=== PATIENT | female | born 1995 | race Caucasian/White ===

== ENCOUNTER 2016-09-14 19:13 | Emergency (ER) | payer OTHER ==
[~2016-09-14] VITALS: Ht 165.1 cm; Wt 121.9 kg
[~2016-09-14 19:13] MED LIST: ARIP15TA PO; LITH150C6 PO; LITH600C PO; NALTPOW PO; SERT-234 PO
[2016-09-14 19:19] VITALS: TEMP 36.9; Ht 165.1 cm; Wt 121.9 kg
[2016-09-14] MEDS ORDERED: TRAZ100T29 PO (19:52)
[2016-09-14] MEDS ORDERED: KETOROLAC TROMETHAMINE 30 MG/ML VIAL IV STA (19:52)
[2016-09-14] MEDS ORDERED: VNTHFA/IN INH (19:52)
--- NOTE | 2016-09-14 20:01 | EMERGENCY ROOM VISIT NOTE ---
History Report prepared by Jesse: Robina Meza Under the Supervision of: Dr. Maria G Cook D.O. First contact with patient: 19:36 Chief Complaint: ABDOMINAL PAIN Stated Complaint: LLQ AND RUQ PAIN Nursing Triage Summary: Pt reports LLQ abdominal pain for approx 3 months, got worse overnight. Now also on R side radiating to back. Pt reports hx of kidney stones and ovarian cysts. History of Present Illness The patient is a 20 year old female who presents to the Emergency Room with complaints of persistent left lower quadrant abdominal pain for the past three months that worsened over the past two days. She currently rates her discomfort as an 8/10 in severity. The patient states that for the past three months she has had left lower quadrant abdominal pain. She states that she was evaluated in [place]'s emergency department. The patient states that she never received the results of her testings there, but notes that she was told that she had ovarian cysts. She states that over the last few days she has noticed increased pain in the left lower quadrant, and additionally notes right upper quadrant pain that radiates into her back. The patient states that her right upper quadrant abdominal pain is worsened with eating greasy foods. She additionally associates nausea with her symptoms today. The patient notes a family history of gallbladder disease on her maternal side. She denies any cough, fever, chills, sore throat, vomiting, urinary symptoms, diarrhea, constipation, or leg cramping or swelling. The patient states that she has taken Motrin and Tylenol for her discomfort without relief. Source of History: patient Onset: three months Position: abdomen (LLQ, RUQ) Symptom Intensity: 8/10 Timing: other (persistent) Associated Symptoms: + nausea, No chills, No cough, No diarrhea, No fevers, No sorethroat, No urinary symptoms, No vomiting Review of Systems See HPI for pertinent positives & negatives. A total of 10 systems reviewed and were otherwise negative. Past Medical & Surgical Medical Problems: (1) Asthma (2) Kidney stone (3) Ovarian cyst Family History Cancer Diabetes mellitus Gallbladder disease Heart disease Hypertension Kidney disease Kidney stones Lung disease Seizures Social History Smoking Status: Current Every Day Smoker Alcohol Use: none Marital Status: single Occupation Status: unemployed Current/Historical Medications Scheduled Albuterol Hfa (Ventolin Hfa), 2-4 PUFFS INH Q6H Sertraline (Zoloft), 100 MG PO DAILY Trazodone Hcl (Trazodone), 100 MG PO DAILY Allergies Coded Allergies: Penicillins (Unverified Allergy, Unknown, HIVES, 09/14/16) Physical Exam Vital Signs Date Time Temp Pulse Resp B/P Pulse Ox O2 Delivery O2 Flow Rate FiO2 09/14/16 21:08 67 16 113/68 98 09/14/16 20:41 71 18 115/67 97 Room Air 09/14/16 19:19 36.9 74 18 121/79 98 Room Air Physical Exam HEENT: Head - normocephalic and atraumatic Pupils are equal, round, and reactive to light. Extraocular eye muscles are intact, and sclera are anicteric. Nose - moist nasal mucosa without discharge. Mouth - moist buccal mucosa. Oropharynx is nonerythematous and there is no tonsillar exudate or edema noted. Neck: Supple; no JVD, nuchal rigidity, cervical lymphadenopathy. Heart: Regular rate and rhythm. There is a normal S1 and S2 with no murmurs, clicks, or gallops appreciated. Lungs: Clear to auscultation bilaterally with no wheezes, rales, or rhonchi. Abdomen: Right upper quadrant tenderness with palpation. Soft, nondistended, with good bowel sounds. There are no palpable pulsatile masses or hepatosplenomegaly. There is no guarding, rigidity, or rebound noted. Back: Right flank pain with palpation. Extremities: No evidence of cyanosis, clubbing, or edema. There are easily palpable peripheral pulses. Skin: warm and dry with good turgor and no rashes. Medical Decision & Procedures ER Provider Diagnostic Interpretation: US results as stated below per my review and radiologist interpretation: Right upper quadrant ultrasound GALLBLADDER-ABD LIMITED CLINICAL HISTORY: eval for cho tavo pain. Nausea. TECHNIQUE: Ultrasound COMPARISON STUDY: None FINDINGS: Gallbladder is somewhat contracted. No shadowing gallstones. Common bile duct 3 mm. Fatty infiltration of liver. Right kidney negative for hydronephrosis. IMPRESSION: No acute process. Mildly contracted gallbladder Electronically signed by: Emmanuel Chopra M.D. 09/14/2016 8:42 PM Dictated Date/Time: 09/14/2016 8:41 PM Laboratory Results 09/14/16 19:30 Red Blood Count 4.51, Mean Corpuscular Volume 88.5, Mean Corpuscular Hemoglobin 29.3, Mean Corpuscular Hemoglobin Concent 33.1, Mean Platelet Volume 10.7, Neutrophils (%) (Auto) 56.5, Lymphocytes (%) (Auto) 30.0, Monocytes (%) (Auto) 6.5, Eosinophils (%) (Auto) 6.5, Basophils (%) (Auto) 0.3, Neutrophils # (Auto) 5.25, Lymphocytes # (Auto) 2.78, Monocytes # (Auto) 0.60, Eosinophils # (Auto) 0.60, Basophils # (Auto) 0.03 09/14/16 19:30 Test 09/14/16 19:25 09/14/16 19:30 Urine Color YELLOW Urine Appearance CLOUDY (CLEAR) Urine pH 7.5 (4.5-7.5) Urine Specific [place] 1.014 (1.000-1.030) Urine Protein NEG (NEG) Urine Glucose (UA) NEG (NEG) Urine Ketones NEG (NEG) Urine Occult Blood NEG (NEG) Urine Nitrite NEG (NEG) Urine Bilirubin NEG (NEG) Urine Urobilinogen NEG (NEG) Urine Leukocyte Esterase TRACE (NEG) Urine WBC (Auto) 10-30 /hpf (0-5) Urine RBC (Auto) 5-10 /hpf (0-4) Urine Hyaline Casts (Auto) 0 /lpf (0-5) Urine Epithelial Cells (Auto) >30 /lpf (0-5) Urine Bacteria (Auto) 1+ (NEG) Urine Renal Epithelial Cells 10-20 /lpf (0-5) Urine Test NEG (NEG) White Blood Count 9.28 K/uL (4.8-10.8) Red Blood Count 4.51 M/uL (4.2-5.4) Hemoglobin 13.2 g/dL (12.0-16.0) Hematocrit 39.9 % (37-47) Mean Corpuscular Volume 88.5 fL (80-100) Mean Corpuscular Hemoglobin 29.3 pg (25-34) Mean Corpuscular Hemoglobin Concent 33.1 g/dl (32-36) Platelet Count 279 K/uL (130-400) Mean Platelet Volume 10.7 fL (7.4-10.4) Neutrophils (%) (Auto) 56.5 % Lymphocytes (%) (Auto) 30.0 % Monocytes (%) (Auto) 6.5 % Eosinophils (%) (Auto) 6.5 % Basophils (%) (Auto) 0.3 % Neutrophils # (Auto) 5.25 K/uL (1.4-6.5) Lymphocytes # (Auto) 2.78 K/uL (1.2-3.4) Monocytes # (Auto) 0.60 K/uL (0.11-0.59) Eosinophils # (Auto) 0.60 K/uL (0-0.5) Basophils # (Auto) 0.03 K/uL (0-0.2) RDW Standard Deviation 45.3 fL (36.4-46.3) RDW Coefficient of Variation 13.9 % (11.5-14.5) Immature Granulocyte % (Auto) 0.2 % Immature Granulocyte # (Auto) 0.02 K/uL (0.00-0.02) Anion Gap 7.0 mmol/L (3-11) Est Creatinine Clear Calc Drug Dose 165.1 ml/min Estimated GFR () 142.5 Estimated GFR (Non- 123.0 BUN/Creatinine Ratio 13.5 (10-20) Calcium Level 9.1 mg/dl (8.5-10.1) Total Bilirubin 0.3 mg/dl (0.2-1) Direct Bilirubin < 0.1 mg/dl (0-0.2) Aspartate Amino Transf (AST/SGOT) 8 U/L (15-37) Alanine Aminotransferase (ALT/SGPT) 27 U/L (12-78) Alkaline Phosphatase 113 U/L (45-117) Total Protein 7.5 gm/dl (6.4-8.2) Albumin 4.0 gm/dl (3.4-5.0) Lipase 192 U/L (73-393) Laboratory results per my review. Medications Administered Medications (Trade) Dose Ordered Sig/Renan Route Start Time Stop Time Status Last Admin Dose Admin Ketorolac Tromethamine (Toradol Inj) 30 mg NOW STAT IV 09/14/16 19:52 09/14/16 19:54 DC 09/14/16 20:03 30 MG Procedure The patient was treated with Toradol Inj 30 mg IV. ED Course 1948: Past medical records reviewed. The patient was evaluated in room A12B. A complete history and physical exam was performed. An IV lock was initiated and labs are drawn as above. 1951: Ordered Toradol Inj 30 mg IV. 2029: I went to reevaluate the patient and she is at ultrasound. 2040: I reevaluated the patient and she said that her pain got a little bit better after the Toradol. After her Ultrasound the pain worsened, but she denies wanting any additional pain medications at this time. 2054: I reevaluated the patient and she is resting comfortably. I discussed all the exam findings with her and I discussed the treatment plan. She verbalized complete understanding and agreement. She is ready to go home. Medical Decision The patient is a 20 year old female who presents to the ED with abdominal pain. Differential diagnosis includes acute cholecystitis, gastritis, ulcerative disease, colitis, pyelonephritis, kidney stone. Lab interpretation: No leukocytosis, stable H&H, normal LFTs and lipase, normal renal function and glucose, is negative, urine looks contaminated, 1+ bacteria, 10-30 white cells, trace leukocyte esterase. This is a 20-year-old female patient presents with a 3 month history of left- sided abdominal pain and worsening right-sided abdominal pain over the past 3 days. Patient notes that the pain seems to get worse when she eats fattening foods. She has a strong family history of blood or disease. Liver function tests were normal. She went for a right upper quadrant ultrasound which was unremarkable. I've encouraged patient to follow-up with her PCP in [place]. The patient's urine appears to be contaminated. She denies any urinary symptoms. Impression Primary Impression: Right upper quadrant abdominal pain Scribe Attestation The scribe's documentation has been prepared under my direction and personally reviewed by me in its entirety. I confirm that the note above accurately reflects all work, treatment, procedures, and medical decision making performed by me. Departure Information Dispostion Home / Self-Care Referrals No Doctor, Assigned (PCP) Forms HOME CARE DOCUMENTATION FORM, IMPORTANT VISIT INFORMATION Patient Instructions My [facility] Additional Instructions Rest. Take a bland diet. Take low fat food. Ibuprofen - 600mg every 6 hours with food for pain Follow up with your PCP if pain persists
[2016-09-14 20:03] LABS: BASO % 0.3 %; BASO ABS # 0.03 K/uL (0-0.2); COMPLETE YES; EOS % 6.5 %; HEMATOCRIT 39.9 % (37-47); IG% 0.2 %; LYMPH ABS # 2.78 K/uL (1.2-3.4); MEAN CELL VOLUME 88.5 fL (80-100); MEAN CORPUSCULAR HEMOGLOBIN 29.3 pg (25-34); MEAN CORPUSCULAR HGB CONC 33.1 g/dl (32-36); MEAN PLATELET VOLUME 10.7 fL (7.4-10.4); MONO % 6.5 %; NEUT % 56.5 %; PLATELET COUNT 279 K/uL (130-400); RED BLOOD COUNT 4.51 M/uL (4.2-5.4); WHITE BLOOD COUNT 9.28 K/uL (4.8-10.8)
[2016-09-14 20:07] LABS: URINE APPEARANCE CLOUDY (CLEAR); URINE BILIRUBIN NEG (NEG); URINE COLOR YELLOW; URINE EPITHELIAL CELL AUTO >30 /lpf (0-5); URINE NITRITE NEG (NEG); URINE PH 7.5 (4.5-7.5); URINE SPECIFIC GRAVITY 1.014 (1.000-1.030); UROBILINOGEN NEG (NEG)
[2016-09-14 20:09] LABS: MANUAL MICROSCOPIC REQUIRED? NO; REVIEW REQ? YES
[2016-09-14 20:14] LABS: ALT/SGPT 27 U/L (12-78); AST/SGOT 8 U/L (15-37); BLOOD UREA NITROGEN 9 mg/dl (7-18); BUN/CREATININE RATIO 13.5 (10-20); CALCIUM 9.1 mg/dl (8.5-10.1); CARBON DIOXIDE 28 mmol/L (21-32); CHLORIDE 108 mmol/L (98-107); GLUCOSE 74 mg/dl (70-99); POTASSIUM 3.7 mmol/L (3.5-5.1); SODIUM 143 mmol/L (136-145)
[2016-09-14 20:16] LABS: ALKALINE PHOSPHATASE 113 U/L (45-117)
--- NOTE | 2016-09-14 20:43 | DIAGNOSTIC IMAGING REPORT ---
Right upper quadrant ultrasound GALLBLADDER-ABD LIMITED CLINICAL HISTORY: eval for cho tavo pain. Nausea. TECHNIQUE: Ultrasound COMPARISON STUDY: None FINDINGS: Gallbladder is somewhat contracted. No shadowing gallstones. Common bile duct 3 mm. Fatty infiltration of liver. Right kidney negative for hydronephrosis. IMPRESSION: No acute process. Mildly contracted gallbladder Electronically signed by: Emmanuel Chopra M.D. 09/14/2016 8:42 PM Dictated Date/Time: 09/14/2016 8:41 PM
[2016-09-14 21:08] VITALS: BP 113/68; PULSE 67; O2SAT 98
== END 2016-09-14 21:09 | disposition home or self-care (01) ==
LOC: C.EDB 19:16 → C.EDA 21:09
DX: R10.11 Right upper quadrant pain (principal); J45.909 Unspecified asthma, uncomplicated; N83.209 Unspecified ovarian cyst, unspecified side; F17.200 Nicotine dependence, unspecified, uncomplicated; Z87.442 Personal history of urinary calculi; Z79.899 Other long term (current) drug therapy; Z88.0 Allergy status to penicillin; Z80.9 Family history of malignant neoplasm, unspecified; Z83.3 Family history of diabetes mellitus; Z83.79 Family history of other diseases of the digestive system; Z82.49 Family history of ischemic heart disease and other diseases of the circulatory system; Z84.1 Family history of disorders of kidney and ureter; Z82.0 Family history of epilepsy and other diseases of the nervous system

== ENCOUNTER 2016-10-20 22:36 | Emergency (ER) | payer OTHER ==
[~2016-10-20] VITALS: Ht 165.1 cm; Wt 122.5 kg
[~2016-10-20 22:36] MED LIST changes: -ARIP15TA PO; -LITH150C6 PO; -LITH600C PO; -NALTPOW PO; +TRAZ100T29 PO; +VNTHFA/IN INH
[2016-10-20 22:55] VITALS: Ht 165.1 cm; Wt 122.5 kg
[2016-10-20] MEDS ORDERED: KETOROLAC TROMETHAMINE 30 MG/ML VIAL IV STA (23:44)
[2016-10-20] MEDS ORDERED: SODIUM CHLORIDE 0.9% 1000ML 1,000 ML IV STA ×2 (23:44)
[2016-10-20] MEDS ORDERED: DiphenhydrAMINE HCL 50 MG/ML VIAL IV STA (23:44)
[2016-10-20] MEDS ORDERED: METOCLOPRAMIDE HCL INJ 5 MG/ML 2 ML VIAL IV STA (23:44)
[2016-10-21 00:18] LABS: HEMATOCRIT 39.1 % (37-47); MEAN CELL VOLUME 87.3 fL (80-100); MEAN CORPUSCULAR HEMOGLOBIN 29.2 pg (25-34); MEAN CORPUSCULAR HGB CONC 33.5 g/dl (32-36); MEAN PLATELET VOLUME 10.3 fL (7.4-10.4); PLATELET COUNT 266 K/uL (130-400); RED BLOOD COUNT 4.48 M/uL (4.2-5.4); WHITE BLOOD COUNT 9.26 K/uL (4.8-10.8)
[2016-10-21 00:31] VITALS: BP 113/68; PULSE 98; TEMP 36.7; O2SAT 99
[2016-10-21 00:40] LABS: URINE APPEARANCE CLOUDY (CLEAR); URINE BILIRUBIN NEG (NEG); URINE COLOR YELLOW; URINE EPITHELIAL CELL AUTO >30 /lpf (0-5); URINE NITRITE NEG (NEG); URINE PH 6.5 (4.5-7.5); URINE SPECIFIC GRAVITY 1.029 (1.000-1.030); UROBILINOGEN NEG (NEG); ZZUR CULT IF INDIC CLEAN CATCH YES
[2016-10-21 00:45] LABS: BUN/CREATININE RATIO 20.1 (10-20); CALCIUM 8.8 mg/dl (8.5-10.1); CREATININE 0.76 mg/dl (0.60-1.20); POTASSIUM 3.7 mmol/L (3.5-5.1)
[2016-10-21 00:50] LABS: BASO % 0.2 %; BASO ABS # 0.02 K/uL (0-0.2); COMPLETE YES; EOS % 5.2 %; IG% 0.3 %; LYMPH % 36.3 %; LYMPH ABS # 3.36 K/uL (1.2-3.4); MONO % 5.6 %; NEUT % 52.4 %
[2016-10-21 00:51] LABS: MANUAL MICROSCOPIC REQUIRED? NO; REVIEW REQ? YES
[2016-10-21 01:08] LABS: URINE MUCUS PRESENT (NONE PRSENT)
--- NOTE | 2016-10-21 02:44 | EMERGENCY ROOM VISIT NOTE ---
History First contact with patient: 23:21 Chief Complaint: PELVIC PAIN Stated Complaint: SEVERE LOWER LEFT PELVIC PAIN History of Present Illness The patient is a 21 year old female who presents to the Emergency Room with complaints of left lower suprapubic pain for the past few days steadily getting worse described as cramping, ranging in severity currently 7 out of 10. Nothing makes it better or worse. Patient follows with OB in [place]. Patient states she comes here as she does not like the [facility]. . Patient had ovarian cysts before and symptoms feel somewhat similar. Patient is in a monogamous relationship and does not feel at risk for STI's. Patient denies chest pain, dyspnea, fever, chills, nausea, vomiting, diarrhea, back pain, vaginal itching or discharge, urinary symptoms. Review of Systems See HPI for pertinent positives & negatives. A total of 10 systems reviewed and were otherwise negative. Past Medical/Surgical History Medical Problems: (1) Asthma (2) Kidney stone (3) Ovarian cyst Family History Cancer Diabetes mellitus Gallbladder disease Heart disease Hypertension Kidney disease Kidney stones Lung disease Seizures Social History Smoking Status: Current Every Day Smoker Alcohol Use: none Marital Status: Housing Status: lives with family Occupation Status: unemployed Current/Historical Medications Scheduled Sertraline (Zoloft), 100 MG PO DAILY Trazodone Hcl (Trazodone), 100 MG PO DAILY Scheduled PRN Albuterol Hfa (Ventolin Hfa), 2 PUFFS INH Q6H PRN for SOB/Wheezing Allergies Coded Allergies: Penicillins (Unverified Allergy, Unknown, HIVES, 10/20/16) Physical Exam Vital Signs Date Time Temp Pulse Resp B/P Pulse Ox O2 Delivery O2 Flow Rate FiO2 10/21/16 00:31 36.7 98 18 113/68 99 10/21/16 00:30 98 18 113/68 99 Room Air 10/20/16 22:55 36.7 96 18 120/79 99 Room Air Pain Rating (0-10): 3.0 Physical Exam VITALS: Vitals are noted on the nurse's note and reviewed by myself. Vital signs stable. GENERAL: Pleasant female, in no acute distress, nondiaphoretic, well-developed well-nourished. SKIN: The skin was without rashes, erythema, edema, or bruising. There is no tenting of the skin. Capillary reflex less than 2 seconds. HEAD: Normocephalic atraumatic. EARS: External auditory canals clear, tympanic membranes pearly albert without erythema or effusion bilaterally. EYES: Pupils equal round and reactive to light and accommodation. Conjunctivae without injection, sclerae without icterus. Extraocular movements intact. NOSE: Patent, turbinates without inflammation or discharge. MOUTH: Mucous membranes moist. Pharynx without erythema or exudate. Uvula midline. Airway patent. Tongue does not deviate. NECK: Supple without nuchal rigidity. No lymphadenopathy. No thyromegaly. Cervical spine is nontender. No JVD. HEART: Regular rate and rhythm without murmurs gallops or rubs. LUNGS: Clear to auscultation bilaterally without wheezes, rales or rhonchi. No dullness to percussion. No retractions or accessory muscle use. ABDOMEN: Positive bowel sounds x 4. Normal tympanic percussion. Soft, tender to palpation left lower suprapubic region, protuberant, obese, no CVA tenderness , without masses or organomegaly. Latham sign negative. No guarding or rebound tenderness. MUSCULOSKELETAL: No muscle atrophy, erythema, or edema noted. NEURO: Patient was alert and oriented to person place and time. Normal sensation to light and sharp touch. No focal neurological deficits. Medical Decision & Procedures Laboratory Results 10/21/16 00:03 Red Blood Count 4.48, Mean Corpuscular Volume 87.3, Mean Corpuscular Hemoglobin 29.2, Mean Corpuscular Hemoglobin Concent 33.5, Mean Platelet Volume 10.3, Neutrophils (%) (Auto) 52.4, Lymphocytes (%) (Auto) 36.3, Monocytes (%) (Auto) 5.6, Eosinophils (%) (Auto) 5.2, Basophils (%) (Auto) 0.2, Neutrophils # (Auto) 4.85, Lymphocytes # (Auto) 3.36, Monocytes # (Auto) 0.52, Eosinophils # (Auto) 0.48, Basophils # (Auto) 0.02 10/21/16 00:03 Test 10/20/16 23:45 10/21/16 00:03 Urine Color YELLOW Urine Appearance CLOUDY (CLEAR) Urine pH 6.5 (4.5-7.5) Urine Specific [place] 1.029 (1.000-1.030) Urine Protein NEG (NEG) Urine Glucose (UA) NEG (NEG) Urine Ketones NEG (NEG) Urine Occult Blood NEG (NEG) Urine Nitrite NEG (NEG) Urine Bilirubin NEG (NEG) Urine Urobilinogen NEG (NEG) Urine Leukocyte Esterase TRACE (NEG) Urine WBC (Auto) 5-10 /hpf (0-5) Urine RBC (Auto) 5-10 /hpf (0-4) Urine Hyaline Casts (Auto) 1-5 /lpf (0-5) Urine Epithelial Cells (Auto) >30 /lpf (0-5) Urine Bacteria (Auto) 1+ (NEG) Urine Crystals (NONE PRSENT) Urine Mucus PRESENT (NONE PRSENT) Urine Test NEG (NEG) White Blood Count 9.26 K/uL (4.8-10.8) Red Blood Count 4.48 M/uL (4.2-5.4) Hemoglobin 13.1 g/dL (12.0-16.0) Hematocrit 39.1 % (37-47) Mean Corpuscular Volume 87.3 fL (80-100) Mean Corpuscular Hemoglobin 29.2 pg (25-34) Mean Corpuscular Hemoglobin Concent 33.5 g/dl (32-36) Platelet Count 266 K/uL (130-400) Mean Platelet Volume 10.3 fL (7.4-10.4) Neutrophils (%) (Auto) 52.4 % Lymphocytes (%) (Auto) 36.3 % Monocytes (%) (Auto) 5.6 % Eosinophils (%) (Auto) 5.2 % Basophils (%) (Auto) 0.2 % Neutrophils # (Auto) 4.85 K/uL (1.4-6.5) Lymphocytes # (Auto) 3.36 K/uL (1.2-3.4) Monocytes # (Auto) 0.52 K/uL (0.11-0.59) Eosinophils # (Auto) 0.48 K/uL (0-0.5) Basophils # (Auto) 0.02 K/uL (0-0.2) RDW Standard Deviation 43.4 fL (36.4-46.3) RDW Coefficient of Variation 13.5 % (11.5-14.5) Immature Granulocyte % (Auto) 0.3 % Immature Granulocyte # (Auto) 0.03 K/uL (0.00-0.02) Anion Gap 7.0 mmol/L (3-11) Est Creatinine Clear Calc Drug Dose 151.2 ml/min Estimated GFR () 128.1 Estimated GFR (Non- 110.6 BUN/Creatinine Ratio 20.1 (10-20) Calcium Level 8.8 mg/dl (8.5-10.1) Medications Administered Medications (Trade) Dose Ordered Sig/Renan Route Start Time Stop Time Status Last Admin Dose Admin Sodium Chloride 1,000 ml @ 999 mls/hr Q1H1M STAT IV 10/20/16 23:44 10/21/16 00:44 DC 10/21/16 00:04 999 MLS/HR Sodium Chloride (Nss 1000ml) 1,000 ml @ 125 mls/hr Q8H STAT IV 10/20/16 23:44 10/21/16 02:02 DC 10/21/16 00:05 125 MLS/HR Ketorolac Tromethamine (Toradol Inj) 30 mg NOW STAT IV 10/20/16 23:44 10/20/16 23:46 DC 10/21/16 00:05 30 MG Metoclopramide HCl (Reglan Inj) 10 mg NOW STAT IV 10/20/16 23:44 10/20/16 23:46 DC 10/21/16 00:05 10 MG Diphenhydramine HCl (Benadryl Inj) 25 mg NOW STAT IV 10/20/16 23:44 10/20/16 23:47 DC 10/21/16 00:05 25 MG ED Course Prior records/ancillary studies reviewed. Triage Nursing notes reviewed. Additional history obtained from family The patient's history was concerning for abdominal pain. Differential diagnosis: Etiologies such as ovarian cyst, torsion, infection, , appendicitis, diverticulitis, PUD, biliary pathology, UTI, pancreatitis, obstruction, mesenteric ischemia, aortic pathology, infections, inflammatory bowel disease, renal colic, as well as others were entertained. Physical examination findings: As above. ER treatment provided: Toradol, Reglan, Benadryl, IV fluids On reassessment the patient felt better. Diagnostics interpreted by me: The labs revealed no worrisome leukocytosis or electrolyte abnormality. Negative hCG Patient's right had to leave. Patient did not want to stay for further workup. Patient signed out AMA. Patient understands the risks involved such as infection, surgical emergency, and/or . She is advised follow-up family care doctor tomorrow or here in the ER sooner for further workup, worsening signs or symptoms or as needed. Patient verbalized understanding of this and left AMA in stable condition. The pt informed about the findings as listed above. All questions were answered and pleased with the treatment. Referral: The patient was referred back to their primary care physician for follow-up in 2 -4 hours for a recheck of the current condition. Medical Decision As above Impression Primary Impression: Suprapubic abdominal pain Departure Information Dispostion Against Medical Advice Condition FAIR Referrals Kiran Russell M.D. (PCP) Forms WORK / SCHOOL INSTRUCTIONS, HOME CARE DOCUMENTATION FORM, IMPORTANT VISIT INFORMATION Patient Instructions [facility]
== END 2016-10-21 00:31 | disposition left against medical advice (07) ==
LOC: C.EDB 22:37 → C.EDA 10-21 00:31
DX: R10.32 Left lower quadrant pain (principal); N83.209 Unspecified ovarian cyst, unspecified side; J45.909 Unspecified asthma, uncomplicated; F17.200 Nicotine dependence, unspecified, uncomplicated; Z79.899 Other long term (current) drug therapy; Z88.0 Allergy status to penicillin; Z80.9 Family history of malignant neoplasm, unspecified; Z83.3 Family history of diabetes mellitus; Z83.79 Family history of other diseases of the digestive system; Z82.49 Family history of ischemic heart disease and other diseases of the circulatory system; Z84.1 Family history of disorders of kidney and ureter; Z82.0 Family history of epilepsy and other diseases of the nervous system